=== PATIENT | female | born 1945 | race Caucasian/White ===

== ENCOUNTER 2021-07-06 19:15 | Emergency (ER) | payer MEDICARE, MEDICAID, SELFPAY ==
[2021-07-06 20:04] VITALS: BP 118/73; PULSE 74; RESP 18; TEMP 36.5; O2SAT 98
--- NOTE | 2021-07-06 22:12 | PC.NURSE ---
Pt called to triage for repeat vital signs, states why are you doing that? I've been to lots of nursing homes they don't do that. You already took them! . Pt refuses additional v.s. at this time and back to sit and wait available room.
[2021-07-06 23:38] VITALS: BP 142/90; PULSE 95; RESP 18; O2SAT 98
--- NOTE | 2021-07-07 00:23 | PC.NURSE ---
Pt refusing to give blood sample, refusing COVID swab at this time. ERP at bedside.
[2021-07-07 00:36] LABS: Add Urine Microscopic? YES; Appearance Urine Turbid (Clear); Bacteria Urine Trace /hpf; Bilirubin Urine Negative (Negative); Blood Urine Negative (Negative); Color Urine Amber (Yellow); Glucose Urine UA Negative (Negative); Ketones Urine Trace mg/dL (Negative); Leukocyte Esterase Ur Trace LEU/UL (Negative); Mucus Urine Few /lpf; Nitrate Urine Negative (Negative); Protein Urine 1+ mg/dL (Negative); Squamous Epithelial Cell Urine Many /hpf (Few); WBC Clumps Urine Present /HPF; WBC Urine 31-50 /hpf
--- NOTE | 2021-07-07 00:38 | PC.NURSE ---
Pt continues to refuse blood draw, COVID swab at this time. Pt states fear of being poisoned by staff. ERP at bedside again.
[2021-07-07 00:39] LABS: Specific Grav Ur 1.033 (1.001-1.035)
[2021-07-07 00:53] LABS: Amphetamine Screen Urine Negative (Negative); Barbiturate Screen Urine Negative (Negative); Benzodiazepines Screen Urine Negative (Negative); Cannabinoid Screen Urine Negative (Negative); Cocaine Screen Urine Negative (Negative); Methadone Screen Urine Negative (Negative); Opiate Screen Urine Negative (Negative); Phencyclidine Screen Urine Negative (Negative)
--- NOTE | 2021-07-07 00:56 | PC.NURSE ---
Pt refuses to let this RN draw her blood, stating no I'm not letting you, you're Haily's daughter. This RN tells pt she is not Haily's daughter, pt continues to refuse to let this RN draw blood. Another RN notified.
[2021-07-07 01:22] LABS: Basophils Percent Auto 0.4 % (0.2-1.2); Eosinophils Absolute Auto 0.2 K/mm3 (0-0.3); Eosinophils Percent Auto 2.6 % (0-4.4); Hematocrit 40.1 % (37.0-47.0); Immature Granulocyte Absolute 0.02 K/mm3 (0.00-0.031); Immature Granulocyte Percent A 0.4 % (0-0.5); Lymphocytes Absolute Auto 2.08 K/mm3 (0.9-3.2); Lymphocytes Percent Auto 36.6 % (18.3-44.2); Mean Corpuscular HGB Conc 32.4 g/dl (32-36); Mean Corpuscular Hemoglobin 28.8 pg (26-34); Mean Corpuscular Volume 88.9 fl (80-100); Mean Platelet Volume 12.1 fl (7.4-10.4); Monocytes Absolute Auto 0.6 K/mm3 (0.1-0.6); Monocytes Percent Auto 9.8 % (2.6-8.5); Neutrophils Absolute Auto 2.9 K/mm3 (1.3-6.7); Neutrophils Percent Auto 50.2 % (45.5-73.1); Platelet Count Result 162 k/mm3 (150-375); Red Blood Count 4.51 M/mm3 (4.2-5.4); Red Cell Distribution Width 14.8 % (11.5-14.5); White Blood Count 5.7 K/mm3 (4.5-10.0)
--- NOTE | 2021-07-07 01:25 | ECG_ITS ---
Measurements Intervals [place] Rate: 56 P: 76 SD: 182 QRS: -20 QRSD: 99 T: -5 QT: 410 QTc: 398 Interpretive Statements SINUS BRADYCARDIA LOW QRS VOLTAGE IN PRECORDIAL LEADS VOLTAGE CRITERIA FOR LVH BORDERLINE T WAVE ABNORMALITY- ANT/INF LEADS BASELINE ARTIFACT- I, II, III, AVR, AVL,A VF BORDERLINE ECG Electronically Signed On 07-07-2021 7:47:18 [employer] by Berry Ray D.O.
[2021-07-07 01:32] LABS: Alanine Aminotransferase 12 U/L (4-35); Albumin Level 3.8 g/dL (3.5-5.1); Alkaline Phosphatase 63 U/L (38-126); Anion Gap 6 mmol/L (8-16); Aspartate Amino Transferase 35 U/L (14-36); Bilirubin,Total 0.3 mg/dL (0.2-1.3); Blood Urea Nitrogen 19 mg/dL (7-17); Calcium 8.8 mg/dL (8.4-10.2); Carbon Dioxide 26 mmol/L (22-30); Chloride 109 mmol/L (98-107); Estimated CRCL calculation 46 ml/min; Estimated Glomerular Filt Rate > 60; Glucose 103 mg/dL (65-110); Potassium 3.9 mmol/L (3.4-5.0); Sodium 141 mmol/L (137-145)
[2021-07-07 01:40] LABS: Valproic Acid < 10.0 ug/mL (50-120)
[2021-07-07 01:40] LABS: Acetaminophen < 10 ug/mL (10-30); Ethanol < 10 mg/dL (<10); Salicylate < 1.0 mg/dL (2-20)
--- NOTE | 2021-07-07 02:37 | PC.NURSE ---
Pt refusing updated vital signs at this time. Pt asks for a soda, this RN asks if Luzma Lunsford is ok. Pt states she only wants something out of the vending machine. This RN states our cans are similar to vending machine sodas, they come to the pt closed. Pt states she does not want a soda.
--- NOTE | 2021-07-07 02:51 | ED.GENADULT ---
HPI - General Adult General Chief complaint: Psychiatric Symptoms Stated complaint: hallucinations, hx of schizo, decreased appetite Time Seen by Provider: 07/06/21 23:34 History of Present Illness HPI narrative: Patient 75-year-old female presents the emergency department with chief complaint of needs mental health evaluation. Patient has history of schizophrenia and apparently has been paranoid at the facility where she lives and has been complaining that the staff there are poisoning her. Per the retirement staff the patient has been refusing to take her medications and has not been allowing them to care for her. Patient denies suicidal ideation but states that she thinks that people are going to kill her Review of Systems Review of Systems: A 10 system review of systems was completed on the patient and is negative except for what is stated in the HPI. Nursing and ancillary documentation was reviewed. Exam Narrative: GENERAL: Well-appearing, well-nourished, and in no acute distress. HEAD: Normocephalic, atraumatic. EYES: PERRLA and EOMI. ENT: Nares clear, no rhinorrhea or epistaxis. Mucous membranes moist. NECK: Supple. CHEST: Clear to auscultation. No respiratory distress. HEART: Regular rate and rhythm. No murmur heard. Normal peripheral pulses. ABDOMEN: Soft, nontender, nondistended, normal active bowel sounds. EXTREMITIES: Normal range of motion. No edema. SKIN: Warm, dry, no rash. NEURO: No focal deficits. Alert and oriented x3. PSYCH: Normal mood and affect. Paranoid affect Course Course Emergency Course: Patient has evidence of a mild urinary tract infection but otherwise is medically cleared for psychiatric evaluation, placement and transfer. Patient was seen by the mental health cylinder worker they determined that the patient did not meet emergent criteria for hospitalization from a mental health perspective. Patient will be started on oral antibiotics for her urinary tract infection and the patient will be discharged back to her facility. Vital Signs Vital signs: Vital Signs Temperature 36.5 C 07/06/21 20:04 Pulse Rate 74 07/06/21 20:04 Respiratory Rate 18 07/06/21 20:04 Blood Pressure 118/73 07/06/21 20:04 Pulse Oximetry 98 07/06/21 20:04 Temperature 36.5 C 07/06/21 20:04 Pulse Rate 95 07/06/21 23:38 Respiratory Rate 18 07/06/21 23:38 Blood Pressure 142/90 H 07/06/21 23:38 Pulse Oximetry 98 07/06/21 23:38 Medical Decision Making Vital Signs Vital Signs: Vital Signs Temperature 36.5 C 07/06/21 20:04 Pulse Rate 74 07/06/21 20:04 Respiratory Rate 18 07/06/21 20:04 Blood Pressure 118/73 07/06/21 20:04 Pulse Oximetry 98 07/06/21 20:04 Temperature 36.5 C 07/06/21 20:04 Pulse Rate 95 07/06/21 23:38 Respiratory Rate 18 07/06/21 23:38 Blood Pressure 142/90 H 07/06/21 23:38 Pulse Oximetry 98 07/06/21 23:38 Lab Data Result diagrams: 07/07/21 01:07 07/07/21 01:08 Labs: Lab Results 07/07/21 07/07/21 07/07/21 Range/Units 00:20 00:20 01:07 WBC (4.5-10.0) K/mm3 RBC (4.2-5.4) M/mm3 Hgb (12.0-15.0) g/dL Hct (37.0-47.0) % MCV (80-100) fl MCH (26-34) pg MCHC (32-36) g/dl RDW (11.5-14.5) % Plt Count (150-375) k/mm3 MPV (7.4-10.4) fl Immature Gran % (Auto) (0-0.5) % Neut % (Auto) (45.5-73.1) % Lymph % (Auto) (18.3-44.2) % [place] % (Auto) (2.6-8.5) % Eos % (Auto) (0-4.4) % Baso % (Auto) (0.2-1.2) % Lymph # (Auto) (0.9-3.2) K/mm3 [place] # (Auto) (0.1-0.6) K/mm3 Eos # (Auto) (0-0.3) K/mm3 Baso # (Auto) (0.0-0.1) K/mm3 Abs Immat Gran (auto) (0.00-0.031) K/mm3 Absolute Neuts (auto) (1.3-6.7) K/mm3 Absolute Nucleated RBC (0.0-0.012) K/mm3 Nucleated RBC % (0.0-0.2) % Sodium (137-145) mmol/L Potassium (3.4-5.0) mmol/L Chloride (98-107) mmol/L Carbon Dioxide (22-30) mmol
--- NOTE | 2021-07-07 02:52 | PC.NURSE ---
Crisis called for pt evaluation at this time.
--- NOTE | 2021-07-07 03:49 | PC.NURSE ---
Crisis to room for eval at this time.
--- NOTE | 2021-07-07 04:33 | PC.NURSE ---
Attempted report to [facility] X1 at this time.
--- NOTE | 2021-07-07 04:38 | PC.NURSE ---
Pt refusing PO medication at this time.
[2021-07-07] MEDS: CEPHALEXIN 500 MG CAPSULE PO (04:42)
--- NOTE | 2021-07-07 04:47 | PC.NURSE ---
Attempt X2 made to contact [facility] for report. Unable to reach facility.
--- NOTE | 2021-07-07 04:49 | PC.NURSE ---
Spoke with JORGE LUIS Diehl at [facility] at this time to give report on pt. All questions answered.
--- NOTE | 2021-07-07 07:51 | PC.NURSE ---
made contact with [facility] for updated eta [id number]
[2021-07-07 09:37] VITALS: BP 118/72; PULSE 90; RESP 16; O2SAT 98
[2021-07-07 18:24] LABS: SARS-CoV-2 RNA PCR Negative
== END 2021-07-07 09:50 ==
PROVIDERS: Emergency Provider Emergency Medicine; PCP Internal Medicine
DX: F22 Delusional disorders (principal); N39.0 Urinary tract infection, site not specified; F20.9 Schizophrenia, unspecified; Z79.899 Other long term (current) drug therapy; Z20.822 Contact with and (suspected) exposure to COVID-19; R00.1 Bradycardia, unspecified; R94.31 Abnormal electrocardiogram [ECG] [EKG]
CPT/HCPCS: 36415; 80053; 80164; 80307; 81001; 84443; 85025; 87086; 87088; 93005; 99284; A9270; C9803; U0003; U0005